=== PATIENT | female | born 1935 | race Caucasian/White ===

== ENCOUNTER 2021-03-08 10:29 | Emergency (ER) | payer MEDICARE, SELFPAY ==
--- NOTE | ~2021-03-08 | XR_ITS ---
EXAMINATION: XR hand LT min 3V EXAM DATE: 03/08/2021 11:23 INDICATION: Fall yesterday, hand swelling, initial encounter. TECHNIQUE: Left hand frontal, lateral and oblique projections obtained and reviewed. There is no rodolfo or study for comparison. FINDINGS: Left metacarpal bones are unremarkable. On the lateral projection appearance to the 3rd dis stan interphalangeal joint dorsally probably bony productive change from osteoarthritis. This joint no t well visualized on the other 2 projections because of flexed fingers; check for point tenderness to exclude acute dorsal plate fracture of the distal phalanx. There is no subcutaneous gas. The soft tissue is unremarkable. There are no radiopaque foreign bod ies. 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 IMPRESSION: Left 3rd distal phalangeal dorsal plate osteoarthritis versus avulsion fracture, check fo r point tenderness. Osteoarthritis. Reviewed, dictated and finalized at location A. IMPRESSION: Left 3rd distal phalangeal dorsal plate osteoarthritis versus avuls ion fracture, check for point tenderness. Osteoarthritis.
--- NOTE | ~2021-03-08 | XR_ITS ---
EXAMINATION: XR hand RT min 3V EXAM DATE: 03/08/2021 11:14 INDICATION: Fell yesterday, right hand pain. Initial encounter. TECHNIQUE: Right hand frontal, lateral and oblique projections obtained and reviewed. There is no pr ior study for comparison. FINDINGS: There are acute closed posttraumatic nondisplaced fracture through the 4th and 5th metacarp al bones identified on an oblique projection. These appear to be extra-articular, but can't exclude i ntra-articular component. They are essentially nondisplaced and appear in anatomic alignment. There a re some limitations due to patient positioning, fingers flexed, but no other fracture is suspected. M oderate polyarticular interphalangeal primary osteoarthritis. IMPRESSION: Acute right 4th, 5th metacarpal shaft fractures proximally. Reviewed, dictated and finalized at location A.
[2021-03-08 10:58] VITALS: BP 148/57; PULSE 57; RESP 16; TEMP 36.8; O2SAT 95
--- NOTE | 2021-03-08 12:24 | ED.UPPEXIN ---
HPI - Extremity Injury (Upper) General Chief Complaint: Extremity Injury, Upper Stated Complaint: right hand swelling Time Seen by Provider: 03/08/21 12:12 Source: patient Mode of arrival: ambulatory Limitations: no limitations History of Present Illness HPI narrative: Patient is an 85-year-old female complaining of right hand pain after she fell yesterday. Patient states that she was seen at another hospital and was told that she might have a wrist fracture. Patient noticed increased swelling of her right hand today. Denies any injury today. Denies any head, neck, chest, back, pelvis or any other extremity pain/injury. Related Data Allergies Allergy/AdvReac Type Severity Reaction Status Date / Time codeine Allergy Mild Itching Unverified 09/26/08 15:56 morphine Allergy Mild Confusion Unverified 09/26/08 15:56 Penicillins Allergy Mild Hives / Unverified 09/26/08 15:56 Red Face Sulfa (Sulfonamide Allergy Mild Rash Unverified 09/26/08 15:56 Antibiotics) Review of Systems Review of Systems: All systems reviewed & are unremarkable except as noted in HPI and below PMFSH Comments Past medical history: Hypertension hyperlipidemia Family history: Noncontributory Social history: Non-smoker lives at home Exam Const: General: no acute distress and alert Orientation/consciousness: patient oriented x3 HENMT: Other: Patient abrasion Neck: Neck: normal visual inspection Other: Negative for vertebral tenderness Resp: Effort & Inspection: normal respiratory effort Extrem: General: edema Other: Ecchymosis right hand, swelling of the right hand, decreased range of motion due to pain, neurovascular intact Course Vital Signs Vital signs: Vital Signs Temperature 36.8 C 03/08/21 10:58 Pulse Rate 57 L 03/08/21 10:58 Respiratory Rate 16 03/08/21 10:58 Blood Pressure 148/57 H 03/08/21 10:58 Pulse Oximetry 95 03/08/21 10:58 Temperature 36.8 C 03/08/21 10:58 Pulse Rate 57 L 03/08/21 10:58 Respiratory Rate 16 03/08/21 10:58 Blood Pressure 148/57 H 03/08/21 10:58 Pulse Oximetry 95 03/08/21 10:58 MDM - Extremity Injury (Upper) MDM Narrative Medical decision making narrative: I do not believe that the patient has compartment syndrome at this time on her hand since pain is not out of proportion, there is no paresthesia, there is no pallor, there is no paresis and there is no pulse deficit. Discharge Plan Discharge Clinical Impression: Closed fracture of 4th metacarpal Qualifiers: Encounter type: initial encounter Metacarpal location: base Fracture alignment: nondisplaced Laterality: right Qualified Code(s): S62.344A - Nondisplaced fracture of base of fourth metacarpal bone, right hand, initial encounter for closed fracture Closed fracture of 5th metacarpal Qualifiers: Encounter type: initial encounter Metacarpal location: base Fracture alignment: nondisplaced Laterality: right Qualified Code(s): S62.346A - Nondisplaced fracture of base of fifth metacarpal bone, right hand, initial encounter for closed fracture Patient Disposition: Home, Self-Care Condition: Improved Instructions: Finger Fracture (ED) Follow-up/Referrals: Pramod Ribera MD [Physician] - 03/10/21 [facility],Eduar Coreas MD [Primary Care Provider] - Time of Disposition: 13:01
[2021-03-08 13:42] VITALS: BP 142/68; PULSE 78; RESP 18; O2SAT 99
== END 2021-03-08 13:44 | disposition home or self-care (01) ==
PROVIDERS: Emergency Provider Emergency Medicine; PCP Family Medicine
DX: S62.324A Displaced fracture of shaft of fourth metacarpal bone, right hand, initial encounter for closed fracture (principal); S62.326A Displaced fracture of shaft of fifth metacarpal bone, right hand, initial encounter for closed fracture; I10 Essential (primary) hypertension; E78.5 Hyperlipidemia, unspecified; M19.042 Primary osteoarthritis, left hand; R93.6 Abnormal findings on diagnostic imaging of limbs; W19.XXXA Unspecified fall, initial encounter
CPT/HCPCS: 29125; 73130; 99284